=== PATIENT | female | born 1970 | race Caucasian/White ===

== ENCOUNTER 2020-11-13 02:39 | Outpatient (CLI) | payer OTHER, SELFPAY ==
--- NOTE | 2020-11-13 06:30 | DI.MAMMO_ITS ---
Exam(s) MAMMO SCREENING EXAM: MAMMO SCREENING CLINICAL HISTORY: screening,Z12.39 TECHNIQUE: Bilateral full field digital CC and MLO mammographic images were obtained with 3D tomosyn thesis and utilizing computer aided detection (CAD). COMPARISON: Available for comparison. FINDINGS: Masses/Architectural Distortion: None seen. Microcalcifications: No suspicious pleomorphic-type are seen. Skin Thickening/Nipple Retraction: None. IMPRESSION: 1. No significant interval change with no specific features of malignancy noted. 2. Unless there is more urgent need, screening mammography is recommended, as per [employer] guidelines. BI-RADS Category 1 - Negative Breast Density - Category C - Heterogeneously dense Breast density category C or D implies that the patient has dense breast tissue. Dense breast tissue is very common and is not abnormal but dense breast tissue can make it harder to find cancer on a ma mmogram. Also, dense breast tissue may increase their breast cancer risk. This information about the result of the mammogram report was provided to the patient to raise their awareness. Use this report when you speak with the patient about their risks for breast cancer, which includes their family hist ory. At that time, you may recommend for more screening tests (Ultrasound or MRI) as they might be us eful based on their risk. A negative radiographic report should not delay biopsy if a dominant or clinically suspicious mass is present. Up to ten percent of cancers are not identified on mammography. A negative report may reinforce clinical impression. Adenosis and dense breasts may obscure an underlying neoplasm. False positive reports average 6 to 10%. Patient will receive a letter notifying them of these results.
== END 2020-11-13 02:59 ==
PROVIDERS: PCP Nurse Practitioner Family; Visit Provider Nurse Practitioner Family
DX: Z12.31 Encounter for screening mammogram for malignant neoplasm of breast (principal)
CPT/HCPCS: 77063; 77067

== ENCOUNTER 2020-12-05 03:10 | Outpatient (CLI) | payer OTHER, SELFPAY ==
[2020-12-05 12:31] LABS: Abs Immature Grans 0.01 10^3/uL (0.0-0.06); Absolute Basophil Count 0.05 10^3/uL (0.0-0.2); Absolute Eosinophil Count 0.15 10^3/uL (0.0-0.7); Absolute Lymphocyte Count 1.64 10^3/uL (1.2-3.4); Absolute Monocyte Count 0.48 10^3/uL (0.1-0.8); Absolute Neutrophil Count 4.22 10^3/uL (1.2-6.7); Basophils % 0.8; Eosinophils % 2.3; HCT 46.9 % (36.0-46.0); HGB 15.1 g/dL (11.2-15.7); Immature Grans % 0.2; MCH 28.9 pg (27.0-33.0); MCHC 32.2 % (32.0-36.0); MCV 89.7 fL (80-95); MPV 11.2 fL (8.0-11.0); Monocytes % 7.3; Neutrophils % 64.4; Nucleated RBC 0 %; Platelet Count 237 10^3/uL (130-400); RBC 5.23 10^6/uL (3.93-5.22); RDW 13.2 % (11.7-14.6); RDW-SD 43.8 fL; WBC 6.55 10^3/uL (4.4-10.8)
[2020-12-05 12:39] LABS: BUN 19 mg/dL (7-18); Calcium 9.4 mg/dL (8.5-10.1); Calculated LDL 170 mg/dL (<100); Chloride 107 mmol/L (98-107); Cholesterol 239 mg/dL (<200); Estimated GFR 58.69 (mL/min/1.73m2); Glucose 100 mg/dL (74-106); HDL Cholesterol 52 mg/dL (40-60); Potassium 4.2 mmol/L (3.5-5.1); Sodium 142 mmol/L (136-145); Triglyceride 86 mg/dL (<150)
== END 2020-12-05 03:11 | disposition home or self-care (01) ==
PROVIDERS: PCP Nurse Practitioner Family; Visit Provider Nurse Practitioner Family
DX: E78.5 Hyperlipidemia, unspecified (principal); D75.1 Secondary polycythemia
CPT/HCPCS: 36415; 80048; 80061; 85025

== ENCOUNTER 2021-03-02 09:22 | Outpatient (REF) | payer OTHER, SELFPAY ==
--- NOTE | 2021-03-02 09:00 | PAPFT_PTH ---
PATIENT: Nazia Shaver LOC: [facility] U#:[id number] AGE/SX: 50/F ROOM: RE03/02/[address]: RADHA Collazo : 1970 BED: DIS: 03/02/2021 SPEC #: [id number] RECD: 03/02/21 13:07 STATUS: KALEIGH CHARLES #: [id number] LANEY: 03/02/21 09:[address]: Amy Perez DEPT: [facility] Cytology RECD BY: Berenice Singh Tissues: 1 - CX/ENDOCX FOR PAP SMEARS Procedures: PAP THIN PREP/UVM Screening HPV DNA PROBE Comments: [id number]
== END 2021-03-02 09:23 | disposition home or self-care (01) ==
LOC: LBN 09:22
PROVIDERS: PCP Nurse Practitioner Family; Visit Provider Nurse Practitioner Family
DX: Z12.4 Encounter for screening for malignant neoplasm of cervix (principal); Z11.51 Encounter for screening for human papillomavirus (HPV); Z01.419 Encounter for gynecological examination (general) (routine) without abnormal findings
CPT/HCPCS: 88142; 87624

== ENCOUNTER 2021-08-17 03:58 | Outpatient (CLI) | payer BC, SELFPAY ==
[2021-08-17 13:05] LABS: Source Nasal/Nares
[2021-08-17 17:46] LABS: COVID-19 PCR Negative (Negative)
== END 2021-08-17 03:59 | disposition home or self-care (01) ==
PROVIDERS: PCP Nurse Practitioner Family; Visit Provider Surgery
DX: Z20.822 Contact with and (suspected) exposure to COVID-19 (principal)
CPT/HCPCS: 87635

== ENCOUNTER → 2023-03-12 15:25 | Outpatient (CLI) | payer BC, SELFPAY ==
--- NOTE | 2023-03-12 11:15 | DI.CT_ITS ---
Exam(s) CT ABDOMEN PELVIS W EXAM: CT ABDOMEN PELVIS W CLINICAL HISTORY: large abdominal mass spanning above and below umbilicus,r19.00 TECHNIQUE: Imaging Protocol: Axial computed tomography images with coronal and sagittal reformatted images were created and reviewed CONTRAST MATERIAL: Intravenous: Omnipaque 350 Contrast volume:100 mL Oral: Yes COMPARISON: No exams were available for comparison FINDINGS: ABDOMEN: Lung Bases: Normal where visualized. Liver: Normal density. There is a 3 mm hypodensity in the right lobe of the liver. It is too small f or further characterization. Portal, Superior Mesenteric, and Splenic Veins: Unremarkable. Gallbladder and Biliary Tract: No radiodense calculus or dilation. Pancreas: Normal density, no abnormal calcifications or inflammatory process. Spleen: Normal. Adrenals: No masses seen. Kidneys: Normal size, contour and axis. No radiodense stones or obstructive uropathy. No masses seen. Abdominal Aorta: Abdominal portion non-dilated. Mild atherosclerosis. Bowel: No obstruction or bowel wall thickening. Appendix is unremarkable. Peritoneal Cavity: No ascites, collection or mesenteric inflammatory response. No free air. Lymph Nodes: Within normal limits. Bones: Within normal limits for the patient's age. Soft Tissues: There is a 1.7 transverse by 2.3 AP by 5 cm long area of decreased attenuation involvin g the distal aspect of the right iliopsoas muscle. PELVIS: Bladder: Symmetric distention, no gross wall thickening. Reproductive Organs: The uterus is enlarged and heterogeneous. There is a hypodense mass measuring a t least 10.3 cm AP x 11.4 cm transverse by 11.5 cm craniocaudad. It is located in the fundus of the uterus. There may also be isodense mass in the anterior body of the uterus measuring approximately 5 .9 cm long. The overall length of the uterus is 21 cm. Lymph Nodes: Within normal limits. Bones: Within normal limits for the patient's age. IMPRESSION: 1. Enlarged uterus with a 11.5 cm mass in the fundus. A 2nd 5.9 cm mass is suggested in the anterior body. These likely represent fibroids. Neoplastic process cannot be entirely excluded. An MRI of the pelvis without and with is recommended for further evaluation. 2. Ovoid area of fluid attenuation in the distal aspect of the right iliopsoas muscle. This may also be evaluated on the MRI of the pelvis. RADIATION DOSE DELIVERED: 846.45mGy.cm Total DLP DATA REPOSITORY: All CT scans at this facility are submitted to the National Radiology Data Registry (NRDR) Dose Index Registry (DIR) with the [employer] (ACR). RADIATION OPTIMIZATION: All CT scans at this facility use at least one of these dose optimization te chniques: automated exposure control; mA and/or kV adjustment per patient size (includes targeted exa ms where dose is matched to clinical indication); or iterative reconstruction.
[2023-03-12] MEDS: Barium Sulfate 2% W/V-Berry Smoothie 450 ML BTL PO ×3 (12:15→12:16)
[2023-03-12 12:56] LABS: Anion Gap 6.7 mmol/L (3-11); BUN 14 mg/dL (7-18); CO2 26.3 mmol/L (21.0-32.0); CREATININE 0.8 mg/dL (0.55-1.02); Calcium 9.2 mg/dL (8.5-10.1); Calculated LDL 140 mg/dL (<100); Chloride 101 mmol/L (98-107); Cholesterol 214 mg/dL (<200); Glucose 95 mg/dL (74-106); HDL Cholesterol 54 mg/dL (40-60); Potassium 3.7 mmol/L (3.5-5.1); Sodium 134 mmol/L (136-145); Triglyceride 102 mg/dL (<150)
[2023-03-12] MEDS: Normal Saline - Diluent 50 ML VIAL IJ (14:09)
[2023-03-12] MEDS: Normal Saline Flush 10 ML SYR IVP (14:10)
[2023-03-12] MEDS: Omnipaque 350 MG/ML 100 ML BTL IJ (14:10)
== END ==
PROVIDERS: PCP Nurse Practitioner Family; Visit Provider Nurse Practitioner Family
DX: R19.09 Other intra-abdominal and pelvic swelling, mass and lump (principal)
CPT/HCPCS: 80048; 80061; 74177; J3490

== ENCOUNTER → 2023-04-02 01:18 | Outpatient (CLI) | payer BC, SELFPAY ==
--- NOTE | 2023-04-02 06:46 | DI.MRI_ITS ---
Exam(s) MR PELVIS WO/W EXAM: MR PELVIS WO/W CLINICAL HISTORY: f/u abnl ct, uterine mass,n85.8,fluid attenuation rt iliopsoas muscle. TECHNIQUE: Imaging Protocol: Multisequence MRI scan of pelvis was performed both pre and post contra st infused sequences. Contrast injected was Dotarem 17 mL CONTRAST MATERIAL: Intravenous: Noted rim 17 mL Oral: None COMPARISON: CT scan of 03/12/2023 was reviewed. FINDINGS: PELVIS: ANTERIOR ABDOMINAL WALL: No evidence of anterior abdominal wall hernia in the field of view. No ingu inal hernia. CERVIX: There are multiple nabothian cysts. Largest measures 1.2 x 1.1 cm. UTERUS: There are uterine fibroids, the largest of which is exophytic off the superior aspect of the fundus and measures 11 cm length by 9.3 cm AP by 13 cm. Does not exhibit obvious internal necrosis. Multiple other uterine fibroids noted. There are subendometrial cysts noted anteriorly. There is significant thickening and irregularity of the junctional zone of the entire endometrium, more so anteriorly. Suspicious for adenomyosis. Left ovary: There is unilocular 2.2 x 1.8 cm follicular cyst in left ovary. Right ovary: Not identified LYMPH NODES: There is no intrapelvic nor inguinal adenopathy. URINARY BLADDER: Small-compressed. No obvious mural masses nor diverticuli. OTHER: There is an abnormal multi septated structure in the right ileo psoas, not exhibiting internal enhancement. Associated with the superior acetabulum. Possible paralabral cyst or related to the i pino psoas tendon sheath. Also noted is annular bulging at what is probably L5-S1 disc space. IMPRESSION: 1. Multiple uterine fibroids, the largest measuring 13 x 11 x 9 cm and exhibiting non necrotic enhanc ement. 2. Uterus findings also suspicious for adenomyomatosis. 3. Follicular cyst in the left ovary measuring 2.2 x 1.8 cm. Right ovary not identified. 4. Abnormal intramuscular cystic structure in the right ileal psoas measuring approximately 3 cm by 1.8 cm, without internal enhancement. Possible paralabral cyst versus cystic relation to the ileo ps oas tendon sheath. Benign appearance. RADIATION DOSE DELIVERED: Total DLP DATA REPOSITORY: All CT scans at this facility are submitted to the National Radiology Data Registry (NRDR) Dose Index Registry (DIR) with the [employer] (ACR). RADIATION OPTIMIZATION: All CT scans at this facility use at least one of these dose optimization te chniques: automated exposure control; mA and/or kV adjustment per patient size (includes targeted exa ms where dose is matched to clinical indication); or iterative reconstruction.
[2023-04-02] MEDS: Normal Saline Flush 10 ML SYR IVP (09:00)
[2023-04-02] MEDS: Gadoterate meglumine 20 ML SYRINGE 17 ML IVP (09:00)
--- NOTE | 2023-04-02 16:25 | DI.VRAD_ITS ---
PROCEDURE INFORMATION: Exam: MR Pelvis Without and With Contrast; Uterus and Adnexa Exam date and time: 04/02/2023 8:57 AM Age: 52 years old Clinical indication: Abnormal findings; Abnormal imaging test; Patient HX: Abnormal CT TECHNIQUE: Imaging protocol: Magnetic resonance imaging of the pelvis without and with contrast. Exam focused on the uterus and adnexa. Contrast material: DOTAREM; Contrast volume: 17 ml; Contrast route: INTRAVENOUS (IV); COMPARISON: CT ABDOMEN PELVIS W 03/12/2023 2:12 PM FINDINGS: Uterus: Multiple uterine fibroids. The largest fibroid is in upper posterior fundus and measures approximately 11 cm by 9.3 cm by 13 cm in craniocaudad, AP, and transverse dimensions. Pedunculated fibroid left posteroinferior uterine segment measuring approximately 3 cm. 2 cm pedunculated fibroid adjacent to the right anterior mid uterus. Marked thickening anterior aspect of the uterus without focal mass. Sub endometrial cysts in the anterior uterus with markedly thickened and irregular junctional zone of the entire endometrium, especially anteriorly. This finding is suspicious for adenomyosis. Cervix: Nabothian cysts in the cervix. Right ovary/adnexa: Increased T2 signal distal gluteus medius and minimus tendons of both hips, better demonstrated on the right due to field of view, and consistent tendinopathy. Few follicles in the right ovary. Tiny amount of free fluid in the right adnexa. Left ovary/adnexa: Unilocular 2.4 cm cyst in the left ovary. Intraperitoneal space: No free fluid. Soft tissues: Unremarkable. Other findings: Degenerative disc disease at the lumbosacral junction. IMPRESSION: 1. Bulky fibroid uterus with findings suspicious for adenomyosis. Recommend consultation with gynecologic surgery. 2. Largest uterine fibroid measures approximately 13 cm in greatest dimension in the upper fundus 3. Both ovaries appear normal. 4. Nabothian cysts in the cervix 5. Tiny amount of free fluid in the right adnexa 6. Bilateral gluteus medius and minimus tendinopathy Dictated and Authenticated by: Virginia Palm MD. Ordering:PETE Reyes MD
== END ==
PROVIDERS: PCP Nurse Practitioner Family; Visit Provider Nurse Practitioner Family
DX: N85.8 Other specified noninflammatory disorders of uterus (principal)
CPT/HCPCS: 72197

== ENCOUNTER → 2023-06-02 01:15 | Outpatient (CLI) | payer BC, SELFPAY ==
--- NOTE | 2023-06-02 06:45 | DI.MAMMO_ITS ---
Exam(s) MAMMO SCREENING EXAM: MAMMO SCREENING CLINICAL HISTORY: screening,z12.39. TECHNIQUE: Bilateral full field digital CC and MLO mammographic images were obtained with 3D tomosyn thesis and utilizing computer aided detection (CAD). COMPARISON: Prior mammograms were reviewed. FINDINGS: Fibroglandular tissue pattern is again noted be moderately dense, this somewhat decreasing the sensit ivity of the mammogram for finding hidden underlying lesions. There are no new obvious findings in left breast. Right breast on the MLO view there is subtle suggestion of multiple nodular densities, the largest me asuring 3 by 2.5 cm, located 7 cm in from the nipple on the MLO view. Spot compression view and ultr asound recommended. There are no malignant-appearing microcalcification groups in either breast. There is no significant architectural distortion nor skin thickening-retraction. IMPRESSION: Moderate dense fibroglandular tissue. No radiographic evidence of malignancy in left breast. Asymmetric densities -probable nodule(s) in the right breast. Spot compression view and ultrasound r ecommended. BI-RADS Category 0 - Assessment Incomplete: Need additional imaging evaluation Breast Density - Category C - Heterogeneously dense Breast density Category C or D implies that the patient has dense breast tissue. Dense breast tissue can make it harder to find cancer on a mammogram. Dense breast tissue is also associated with an incr eased risk of breast cancer. This information about the result of the mammogram report was provided to the patient to raise their awareness. Use this report when you speak with the patient about their risks for breast cancer, which includes their family history. At that time, you may recommend additional screening tests (Ultrasoun d or MRI) as these tests may add significant information. A negative radiographic report should not delay biopsy if a dominant or clinically suspicious mass is present. Up to ten percent of cancers are not identified on mammography. A negative report may reinforce clinical impression. Adenosis and dense breasts may obscure an underlying neoplasm. False positive reports average 6 to 10%. Patient will receive a letter notifying them of these results.
== END ==
PROVIDERS: PCP Nurse Practitioner Family; Visit Provider Nurse Practitioner Family
DX: Z12.31 Encounter for screening mammogram for malignant neoplasm of breast (principal)
CPT/HCPCS: 77063; 77067

== ENCOUNTER → 2023-06-06 01:00 | Outpatient (CLI) | payer BC, SELFPAY ==
--- NOTE | 2023-06-06 | DI.MAMMO_ITS ---
Exam(s) MG MAMMO SCREEN CALL BACK UNI US BREAST RT COMPLETE EXAM: MG MAMMO SCREEN CALL BACK UNI-RIGHT AND COMPLETE RIGHT BREAST ULTRASOUND CLINICAL HISTORY: F/U MAMMO, ASYMMETRIC DENSITIES, PROBABLE NODULE,R92.8- TECHNIQUE: Unilateral RIGHT BREAST spot mammographic images obtained with 3D tomosynthesisand utiliz ing computer aided detection (CAD). . Complete RIGHT breast Ultrasound was also performed, including all 4 quadrants, the retroareolar kimberly on, and the ipsilateral axilla. COMPARISON: Prior mammograms were reviewed. This additional imaging was performed due to findings described on the recent screening mammogram of 1323. FINDINGS: DIAGNOSTIC MAMMOGRAM: Additional mammographic views performed todayrevealed this density to persist.Proceeded with ultrasou nd COMPLETE RIGHT BREAST ULTRASOUND: Ultrasound performed today reveals a 5 x 2 mm hemorrhagic microcyst at the 3 o'clock position. There is another 8 x 3 mm microcyst at the 10 o'clock position.. At the 10 o'clock position there is also a wider than taller lobulated solid nodule measuring 3.6 x 1 .0 cm, corresponding to the finding on the mammogram. Exhibits neutral through transmission. No nikita cifications seen within this nodule. Has appearance of a fibroadenoma or possible fibroadenolipoma/h amartoma. Scanning of the ipsilateral axilla reveals no significant adenopathy. IMPRESSION: 1. At the 10 o'clock position of the right breast there is a 36 x 10 mm lobulated wider than taller solid nodule corresponding to what is seen on mammogram. Suspect that this is either fibroadenolipom a or fibroadenoma. Ultrasound-guided biopsy recommended. . The patient was informed of these findings and recommendations by myself prior to leaving the departm ent today. Also called her provider by myself today. BI-RADS Category 4 - Suspicious Abnormality: Biopsy should be considered Breast Density - Category C - Heterogeneously dense Breast density Category C or D implies that the patient has dense breast tissue. Dense breast tissue can make it harder to find cancer on a mammogram. Dense breast tissue is also associated with an incr eased risk of breast cancer. This information about the result of the mammogram report was provided to the patient to raise their awareness. Use this report when you speak with the patient about their risks for breast cancer, which includes their family history. At that time, you may recommend additional screening tests (Ultrasoun d or MRI) as these tests may add significant information. A negative radiographic report should not delay biopsy if a dominant or clinically suspicious mass is present. Up to ten percent of cancers are not identified on mammography. A negative report may reinforce clinical impression. Adenosis and dense breasts may obscure an underlying neoplasm. False positive reports average 6 to 10%. Patient will receive a letter notifying them of these results.
== END ==
PROVIDERS: PCP Nurse Practitioner Family; Visit Provider Nurse Practitioner Family
DX: Z12.31 Encounter for screening mammogram for malignant neoplasm of breast (principal); N63.11 Unspecified lump in the right breast, upper outer quadrant
CPT/HCPCS: 76642; 77063; 77067

== ENCOUNTER → 2023-07-01 01:45 | Outpatient (CLI) | payer BC, SELFPAY ==
--- NOTE | 2023-07-01 08:12 | BREAST_PTH ---
PATIENT: Nazia Shaver LOC: [facility] U#:[id number] AGE/SX: 55/F ROOM: RE07/01/[address]: Makenna Hartley MD : 1970 BED: DIS: SPEC #: [id number] RECD: 07/01/23 11:27 STATUS: KALEIGH CHARLES #: [id number] LANEY: 07/01/23 08:[address]: Makenna Hartley DEPT: Surgical Specimen RECD BY: Berenice Singh ENTERED: 07/01/23 11:28 SP TYPE: Breast OTHR DR: RADHA Collazo Tissues: 1 - BREAST BX NEEDLE Procedures: GROSS AND MICRO LEVEL 4 Comments: [id number]
--- NOTE | 2023-07-01 08:26 | DI.US_ITS ---
Exam(s) US NEEDLE LOCAL BREAST WO RAD EXAM: RT BREAST MASS, ultrasound guided bx COMPARISON: US US BREAST RT COMPLETE from 06/06/2023 TECHNIQUE: Ultrasound performed using standard protocol. FINDINGS: Sonography was provided for Dr. Hartley during the performance of a right breast biopsy. Please ref er to the procedure report for complete details. DATA REPOSITORY:
--- NOTE | 2023-07-01 10:55 | W.PROCNOTE ---
Date of service: 07/01/23 Time of Service: 08:00 Procedure Note Date of procedure: 07/01/23 Procedure: US guided Core needle biopsy of Right Breast Surgeon/Proceduralist/Physician: Makenna Hartley Procedure Diagnosis: Right Breast mass Procedure Indications: Ms. Shaver is a pleasant 52-year-old female who went for her routine mammogram. There were was a mass found which was then ultrasounded. The radiologist recommended biopsy of the lesion. I did look at the ultrasound myself the lesion looks well-circumscribed. Most likely a fibroadenoma. I spoke to the patient and we went over her history. She is unable to feel the mass. She has had no skin changes or nipple discharge. She has no known family with breast cancer, ovarian cancer or endometrial cancer. She has never had a biopsy before. I reviewed the procedure with her as well as the possible complications. She had a good understanding at the end of our conversation and felt comfortable signing the consent which she did. Procedure Description: Pre-op Dx: Right Breast Mass Post-op Dx: same Procedure: US guided Core needle biopsy of Right Breast Mass Surgeon: Darren Hartley MD Anesthesia: Local anesthesia with 1% Lidocaine Blood loss: 2 cc Specimen: Core needle biopsy x3 Complications: no immediate complications Procedure: After informed consent was obtained the patient was placed in a supine position. US was done of the Breast and the lesion was localized by the US tech. The skin was cleaned with chlorhexedine and infiltrated with the above local anesthetic. An incision was made with an 11 blade. Using a 14 gauge core needle 3 specimens were removed and placed on telfa and placed in formalin. The skin was cleaned and dried and a band aid was applied. The patient was given an Ice pack to place over the biopsy area. The patient tolerated the procedure well and there were no immediate complications. Patient was asked to take Tylenol and ibuprofen for any discomfort. Continue with the ice. If there is any developing or redness, it feels hot to the touch or she has fevers she needs to call me right away. I will call her with the results of the biopsy as soon as I get them.
== END ==
PROVIDERS: PCP Nurse Practitioner Family; Visit Provider Surgery
DX: N60.31 Fibrosclerosis of right breast (principal)
CPT/HCPCS: 19083; 88305; 76942

== ENCOUNTER 2024-06-09 01:38 | Outpatient (CLI) | payer BC, SELFPAY ==
--- NOTE | 2024-06-09 06:45 | DI.MAMMO_ITS ---
Exam(s) US BREAST RT COMPLETE MG MAMMO DIAGNOSTIC BI EXAM: MG MAMMO DIAGNOSTIC BI COMPLETE RIGHT BREAST ULTRASOUND CLINICAL HISTORY: Breast abnormality/breast mass/status post biopsy,f/u abnl mammo,r92.8,. TECHNIQUE: BILATERAL CC AND MLO mammographic images were obtained with 3D tomosynthesis technique an d utilizing computer aided detection (CAD). COMPLETE RIGHT BREAST ULTRASOUND was performed including all 4 quadrants as well as the right axilla. COMPARISON: Prior mammograms were reviewed, as were prior ultrasound exams. This patient underwent ultrasound-guided core biopsy a nodule at 10 o'clock position the right breast on 07/01/2023 which was negative for malignancy but with nonspecific pathology report findings. The biopsy marker clip is indeed within the nodule as seen on the mammogram. In addition, images from t ultrasound-guided biopsy of 07/01/2023 do reveal the biopsy device within the targeted nodule. FINDINGS: BILATERAL MAMMOGRAM: No new left breast findings. The right breast the previously described nodular density in the upper outer quadrant 10 o'clock posi tion is again noted and appears unchanged in size. Biopsy marker clip is now evident within this fin ding (07/01/2023 ultrasound-guided core biopsy). There are no new spiculated masses nor malignant-appearing microcalcification groups in either breast . No new architectural distortion or skin thickening-traction. COMPLETE RIGHT BREAST ULTRASOUND: At the 10 o'clock position the previously described and previously biopsied wider than taller lobulat ed nodule appears unchanged in size and configuration with measurements today 3.2 by 1.0 cm. At the 4 o'clock position there is a wider than taller 5 x 3 mm finding with neutral through transmis gordy noted which is either a hemorrhagic microcyst, small fibroadenoma, or just part of her fibroglan dular pattern. At the 8 o'clock position there is a 5 x 4 mm wider than taller probable hemorrhagic microcyst versus small fibroadenoma. Exhibits slightly increased through transmission. No other findings in all 4 quadrants and scanning of the right axilla is negative for significant guadalupe nopathy. IMPRESSION: 1. Stable mammographic and ultrasound appearance of the previously biopsied (07/01/2023 ultrasound-gu ided core biopsy) nodule in the upper-outer quadrant (10 o'clock position). Given its appearance and lack of specific findings on the pathology report as well as lack of growth, there is a possibly kamilah t this is a fibroadenomalipoma/hamartoma. 2. Other two incidental ultrasound findings at 4 o'clock and 8 o'clock positions of the right breast as described above. Recommend follow-up right breast ultrasound in 6 months. The patient was informed of the findings and follow-up recommendations by myself prior to leaving the department today. BI-RADS Category 3 - 6 month - Probably Benign Finding: Recommend follow-up mammography in 6 months Breast Density - Category C - Heterogeneously dense Breast density Category C or D implies that the patient has dense breast tissue. Dense breast tissue can make it harder to find cancer on a mammogram. Dense breast tissue is also associated with an incr eased risk of breast cancer. This information about the result of the mammogram report was provided to the patient to raise their awareness. Use this report when you speak with the patient about their risks for breast cancer, which includes their family history. At that time, you may recommend additional screening tests (Ultrasoun d or MRI) as these tests may add significant information. A negative radiographic report should not delay biopsy if a dominant or clinically suspicious mass is present. Up to ten percent of cancers are not identified on mammography. A negative report may reinforce clinical impression. Adenosis and dense breasts may obscure an underlying neoplasm. False positive reports average 6 to 10%. Patient will receive a letter notifying them of these results.
== END 2024-06-09 01:58 ==
LOC: DI 01:38
PROVIDERS: PCP Nurse Practitioner Family; Visit Provider Surgery
DX: Z12.31 Encounter for screening mammogram for malignant neoplasm of breast (principal); N63.12 Unspecified lump in the right breast, upper inner quadrant
CPT/HCPCS: 76642; 77062; 77066; G0279

== ENCOUNTER 2025-03-29 08:04 | Outpatient (CLI) | payer BC, SELFPAY ==
--- NOTE | 2025-03-29 07:30 | DI.US_ITS ---
APPROVED REPORT EXAM: Comprehensive 2D, Doppler, and color-flow Echocardiogram Patient Location: Out-Patient [facility] Worker: Mike Redd RDCS (AE) Indications: Murmur Other Information Study Quality: Adequate Conclusion Normal left ventricular wall thickness and chamber size. Ejection fraction is 60 to 65%. Wall motion is normal Normal right ventricular size and function Both atria are normal in size There is no structural or hemodynamically significant valvular disease Wall motion Left Ventricle The left ventricle is normal size. Left ventricular systolic function is normal. The left ventricular ejection fraction is within the normal range. There is normal left ventricular wall thickness. There is normal LV segmental wall motion. There is no ventricular septal defect visualized. LVEF is 60-65%. Right Ventricle The right ventricle is normal size. The right ventricular systolic function is normal. Atria The left atrium size is normal. The right atrium size is normal. The interatrial septum is intact with no evidence for an atrial septal defect. Aortic Valve The aortic valve is normal in structure. Aortic valve is trileaflet. There is no aortic valvular stenosis. No aortic regurgitation is present. Mitral Valve The mitral valve is normal in structure. No evidence of mitral valve stenosis. Trivial mitral regurgitation. Tricuspid Valve The tricuspid valve is normal in structure. There is no tricuspid valve stenosis. Mild tricuspid regurgitation. The RVSP is 32.8 mmHg. Pulmonic Valve The pulmonary valve is normal in structure. There is no pulmonic valvular stenosis. There is no pulmonic valvular regurgitation. Great Vessels The aortic root is normal in size. The ascending aorta is normal in size. Aortic arch is normal in caliber. IVC is normal in size and collapses >50% with inspiration. Pericardium There is no pericardial effusion. 2D Dimensions IVSD d PLAX 0.85 cm F: 0.6-1.0 Ao Root d 2.41 cm F: 2.7 - 3.3 LVPW d PLAX 0.75 cm F: 0.6 - 1.0 Ao Asc Diam d 2.86 cm F: 2.3 - 3.1 LVID d PLAX 4.67 cm F: 3.8 - 5.2 LVDs 3.02 cm F: 2.2 - 3.5 LV EF Teichholz 64.6 % FS 35.27 % LV EDV (Teich) 100.7 mL LV ESV (Teich) 35.6 mL Stroke Vol Index (Teich) 35.77 M-Mode TAPSE 2.21 cm (M/F) >1.7 Auto EF LV EDV A4C 117.6 mL LV EDV A2C 117.4 mL LV EDV BP 122.0 mL LV ESV A4C 47.1 mL LV ESV A2C 44.6 mL LV ESV BP 46.6 mL LVEF(%) A4C 60.0 % LVEF(%) A2C 62.0 % LVEF(%) BP 61.8 % LV SV A4C 70.5 ml LV SV A2C 72.8 ml LV SV BP 75.4 ml LV CO A4C 4.3 L/min LV CO A2C 4.2 L/min LV CO BP 4.3 L/min HR A4C 61.65 BPM HR A2C 58.35 BPM LV EDV Index (BP) LA Volume LA Length A4C 4.9 cm LA Length A2C 4.7 cm LA Area A4C s 12.92 cm2 LA Area A2C s 13.88 cm2 LA Vol A4C A-L 28.71 mL LA Vol A2C A-L 34.68 mL LA Vol Biplane A-L 32.3 mL LA Vol/BSA A4C A-L LA Vol/BSA A2C A-L LA Vol/BSA BP A-L 17.7 mL/m2 LA Vol A4C MOD 27.4 mL LA Vol A2C MOD 32.2 mL LA Vol BP MOD 30.3 mL RA Volume RA Area A4C 8.7 cm2 RA ESV A4C (A-L) 15.9mL RA Vol/BSA A4C A-L RA Length A4C 4.1 cm RA ESV A4C (MOD) 15.5mL LV Diastology MV E' medial 0.109 (>0.07 m/s) MV E Vmax 0.90 (0.4-1.3 m/s) MV E/E' MED 8.22 (<14) MV A Vmax 0.60 (0.4-1.3 m/s) MV E' lateral 0.149 (>0.1 m/s) E/A Ratio 1.5 MV E/E' LAT 6.03 (<14) MV E' Average 0.129 m/s MV E/E'(average) 6.95 Aortic Valve AoV Vmax 1.68 m/s LVOT Vmax 1.40 m/s AoV Peak Grad 11.3 mmHg LVOT Peak Grad 7.8 mmHg AoV Area (Vmax) 2.04 cm2 LVOT VTI 0.313 m AoV VTI 0.393 m LVOT Mean Grad 3.7 mmHg AoV Mean Ervin. 1.12 m/s LVOT SV 76.93 mL AoV Mean Grad 5.7 mmHg LVOT Diam s 1.75 cm AoV Area (VTI) 1.96 cm2 AV Regurg Peak Gr. 11.34 mmHg Velocity Ratio 0.83 Mitral Valve MV DT 221 (160-240 msec) Pulmonary Valve PV Vmax 0.99 (0.5-1.5 m/s) RVOT Vmax 0.80 m/s PV Peak Grad 3.9 mmHg RVOT Peak Gr. 2.6 mmHg PV Mean Ervin 0.79 m/s RVOT VTI 0.136 m PV Mean Grad 2.6 mmHg RVOT Mean Gr. 1.4 mmHg Tricuspid Valve RA Pressure 3.00 mmHg TR Vmax 2.73 m/s TR Peak Grad 29.8 mmHg RVSP (TR) 32.8 mmHg
== END 2025-03-29 08:24 ==
PROVIDERS: PCP Nurse Practitioner Family; Visit Provider Internal Medicine Cardiovascular Disease
DX: R01.1 Cardiac murmur, unspecified (principal)
CPT/HCPCS: 93306

== ENCOUNTER 2025-04-04 01:48 | Outpatient (CLI) | payer BC, SELFPAY ==
[2025-04-04 15:57] LABS: HCT 42.9 % (36.0-46.0); HGB 14.3 g/dL (11.2-15.7); MCH 29.1 pg (27.0-33.0); MCHC 33.3 % (32.0-36.0); MCV 87 fL (80-95); MPV 10.4 fL (8.0-11.0); Platelet Count 211 10^3/uL (130-400); RBC 4.92 10^6/uL (3.93-5.22); RDW 13.0 % (11.7-14.6); RDW-SD 41.5 fL; WBC 5.98 10^3/uL (4.4-10.8)
[2025-04-04 16:35] LABS: Hemoglobin A1C 5.8 % (<5.7)
[2025-04-04 16:54] LABS: Anion Gap 11.5 mmol/L (3-11); BUN 15 mg/dL (7-18); CO2 25.5 mmol/L (21.0-32.0); Calcium 9.8 mg/dL (8.5-10.1); Chloride 105 mmol/L (98-107); Estimated GFR 75.97 (mL/min/1.73m2); Glucose 147 mg/dL (74-106); Potassium 3.4 mmol/L (3.5-5.1); Sodium 142 mmol/L (136-145); TSH (W/Ref FT4) 1.22 uIU/mL (0.36-3.74)
[2025-04-06 10:36] LABS: HIV-1/2 Ag & Ab Screen Negative (Negative)
[2025-04-06 10:54] LABS: Hepatitis C Ab w Rflx HCV PCR Negative (Negative)
[2025-04-06 11:57] LABS: HBs Antibody, Quant 5.3 mIU/mL (See Note); Hepatitis B Surface Antigen Negative (Negative)
== END 2025-04-04 01:49 | disposition home or self-care (01) ==
PROVIDERS: PCP Nurse Practitioner Family; Visit Provider Nurse Practitioner Family
DX: Z11.59 Encounter for screening for other viral diseases (principal); E78.5 Hyperlipidemia, unspecified; Z11.4 Encounter for screening for human immunodeficiency virus [HIV]
CPT/HCPCS: 36415; 80048; 85027; 86704; 86706; 86803; 87340; 87389; 83036; 84443

== ENCOUNTER → 2025-06-13 02:07 | Outpatient (CLI) | payer BC, SELFPAY ==
--- NOTE | 2025-06-13 08:47 | DI.MAMMO_ITS ---
Exam(s) MAMMO SCREENING EXAM: MAMMO SCREENING CLINICAL HISTORY: screening,Z12.39 TECHNIQUE: Bilateral full field digital CC and MLO mammographic images were obtained with 3D tomosynthesis and utilizing computer aided detection (CAD). COMPARISON: Comparison is made with prior examinations. FINDINGS: Masses/Architectural Distortion: No suspicious masses or areas of architectural distortion are present. There is again seen a biopsy clip in the upper outer quadrant of the right breast. The ovoid density in the upper outer quadrant appears stable. Microcalcifications: No suspicious pleomorphic-type are seen. Skin Thickening/Nipple Retraction: None. IMPRESSION: 1. No significant interval change with no specific features of malignancy noted. 2. Unless there is more urgent need, screening mammography is recommended, as per [employer] [employer] guidelines. BI-RADS Category 2 - Benign Findings Breast Density - Category C - The breast are heterogeneously dense, which may obscure small masses. Breast density Category C or D implies that the patient has dense breast tissue. Dense breast tissue can make it harder to find cancer on a mammogram. Dense breast tissue is also associated with an increased risk of breast cancer. This information about the result of the mammogram report was provided to the patient to raise their awareness. Use this report when you speak with the patient about their risks for breast cancer, which includes their family history. At that time, you may recommend additional screening tests (Ultrasound or MRI) as these tests may add significant information. A negative radiographic report should not delay biopsy if a dominant or clinically suspicious mass is present. Up to ten percent of cancers are not identified on mammography. A negative report may reinforce clinical impression. Adenosis and dense breasts may obscure an underlying neoplasm. False positive reports average 6 to 10%. Patient will receive a letter notifying them of these results.
== END ==
LOC: DI 02:07
PROVIDERS: PCP Nurse Practitioner Family; Visit Provider Nurse Practitioner Family
DX: Z12.31 Encounter for screening mammogram for malignant neoplasm of breast (principal)
CPT/HCPCS: 77063; 77067